=== PATIENT | female | born 1990 | race Caucasian/White ===

== ENCOUNTER 2017-03-27 20:43 | Outpatient (CLI) | payer OTHER, MEDICAID | END 2017-03-27 20:44 | disposition EMS.NT | LOC: EMS 20:43 | PROVIDERS: ATTEND Surgery | DX: Z04.1 Encounter for examination and observation following transport accident (principal); V49.9XXA Car occupant (driver) (passenger) injured in unspecified traffic accident, initial encounter; Y92.414 Local residential or business street as the place of occurrence of the external cause ==

== ENCOUNTER 2017-03-27 22:47 | Emergency (ER) | payer OTHER, MEDICAID ==
[2017-03-27 23:23] LABS: HCG UR QUAL NEGATIVE
--- NOTE | 2017-03-28 00:11 | XRAY Preliminary Report ---
Exam: XR CHEST 2 VIEW PA/LAT IMPRESSION: 1. No acute abnormality seen in the chest. [facility] SITE ID: [id number]
[2017-03-28 00:13] VITALS: BP 122/76
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
[2017-03-28] MEDS ORDERED: TETANUS/DIPHTHERIA/PERTUSSIS 0.5 ML SYRINGE IM ONE (00:28)
== END 2017-03-28 00:30 | disposition home or self-care (01) ==
LOC: ED 22:47
DX: M25.511 Pain in right shoulder (principal); R07.9 Chest pain, unspecified; S00.01XA Abrasion of scalp, initial encounter; V48.5XXA Car driver injured in noncollision transport accident in traffic accident, initial encounter
CPT/HCPCS: 36415; 71020; 81025; 84484; 93005; 99283; 99284

== ENCOUNTER 2022-01-14 18:48 | Emergency (ER) | payer OTHER, BC ==
--- OUTSIDE RECORDS SUMMARY | 2022-01-14 18:58 | EXTERNAL MEDICAL SUMMARY RPT | Continuity of Care Document ---
:1990 Author Organization [facility] Address [address] [place] [address] Phone Care Team Providers Name Role Phone Unavailable Unavailable Unavailable Hattie, Provider Unavailable Unavailable Allergies No information. Encounters No information. Functional Status No information. Immunizations No information. Medications date description facility [id number] azithromycin [facility] [id number]+0000 azithromycin [facility] [id number]+0000 azithromycin [facility] [id number]+0000 azithromycin [facility] Problems No information. Procedures date description facility [id number]+0000 Visit Code Hold [facility] [id number]+0000 APF forms [facility] Results/Labs No information. Social History date description facility [id number] Former smoker [facility] Vital Signs date measurement value units [id number]+0000 BMI BMI 37.04 kg/m2 [id number]+0000 BP_diastolic BP_diastolic 79 mmHg [id number]+0000 BP_systolic BP_systolic 115 mmHg [id number]+0000 heart_rate heart_rate 82 /min [id number]+0000 height_metric height_metric 162.56 cm [id number]+0000 height_standard height_standard 64 in [id number]+0000 respiration_rate respiration_rate 16 /min 58223389977039+0000 temperature_metric temperature_metric 36.22 C [id number]+0000 temperature_standard temperature_standard 9 7.2 F [id number]+0000 weight_metric weight_metric 97.52 kg 56860011978832+0000 weight_standard weight_standard 215 lb
[2022-01-14] MEDS ORDERED: MELOXICAM 7.5 MG TABLET PO STA (19:41)
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
[2022-01-14 20:38] VITALS: BP 130/80
== END 2022-01-14 20:36 | disposition home or self-care (01) ==
LOC: ED 18:48
DX: Z04.1 Encounter for examination and observation following transport accident (principal); F17.200 Nicotine dependence, unspecified, uncomplicated
CPT/HCPCS: 99282; A9270